=== PATIENT | female | born 1980 | race Caucasian/White ===

== ENCOUNTER 2017-10-19 15:57 | Emergency (ER) | payer OTHER ==
[2017-10-19] MEDS: ONDANSETRON 4MG/2ML VIAL (J2405) IV (17:46)
[2017-10-19] MEDS: MORPHINE 4 MG/ML 1ML VIAL (J2270) IV (17:47)
[2017-10-19] MEDS: NS 1,000 ML IV (17:47)
[2017-10-19 18:04] LABS: BASO # 0.1 10^3/uL (0.0-0.2); BASO % 0.6 % (0.0-1.0); EOS # 0.4 10^3/uL (0.0-0.50); EOS % 3.4 % (0.0-3.0); HEMATOCRIT 41.3 % (36.0-47.0); HEMOGLOBIN 13.7 g/dl (12.0-16.0); IMMATURE GRANULOCYTE % 0.2 % (0-3.0); LYMPH # 3.6 10^3/uL (1.5-4.5); LYMPH % 34.9 % (24.0-44.0); MEAN CORPUSCULAR HEMOGLOBIN 28.5 pg (27.0-33.0); MEAN CORPUSCULAR HGB CONC 33.2 g/dl (32.0-36.5); MONO # 0.6 10^3/uL (0.0-0.8); MONO % 5.7 % (0.0-5.0); NEUTROPHILS # 5.7 10^3/uL (1.8-7.7); NEUTROPHILS % 55.2 % (36.0-66.0); PLATELET COUNT, AUTOMATED 334 10^3/uL (150-450); RED CELL DISTRIBUTION WIDTH 12.8 % (11.5-14.5); WHITE BLOOD COUNT 10.3 10^3/uL (4.0-10.0)
[2017-10-19 18:06] LABS: KETONE, URINE AUTO RFX NEGATIVE (NEGATIVE); NITRITE, URINE AUTO RFX NEGATIVE (NEGATIVE); RBC, URINE AUTO RFX 3 /HPF (0-3); SPECIFIC GRAVITY UR AUTO RFX 1.004 (1.002-1.035); SQUAM EPITHELIAL CELL UR AURFX 3 /HPF (0-6); WBC, URINE AUTO RFX 6 /HPF (0-3)
[2017-10-19 18:07] LABS: LEUKOCYTE ESTERASE UR AUTO RFX 2+ (NEGATIVE)
[2017-10-19 18:23] LABS: ALBUMIN 4.2 GM/DL (3.2-5.2); ALBUMIN/GLOBULIN RATIO 1.14 (1.00-1.93); ALKALINE PHOSPHATASE 80 U/L (45-117); ALT/SGPT 38 U/L (12-78); ANION GAP 7 MEQ/L (8-16); AST/SGOT 16 U/L (7-37); BILIRUBIN,DIRECT 0.1 MG/DL (0.0-0.2); BILIRUBIN,TOTAL 0.3 MG/DL (0.2-1.0); BLOOD UREA NITROGEN 9 MG/DL (7-18); CALCIUM LEVEL 9.1 MG/DL (8.5-10.1); CARBON DIOXIDE LEVEL 26 MEQ/L (21-32); CHLORIDE LEVEL 106 MEQ/L (98-107); GLOMERULAR FILTRATION RATE > 60.0 (>60); GLUCOSE, FASTING 85 MG/DL (70-100); LIPASE 115 U/L (73-393); POTASSIUM SERUM 3.6 MEQ/L (3.5-5.1); SODIUM LEVEL 139 MEQ/L (136-145); TOTAL PROTEIN 7.9 GM/DL (6.4-8.2)
[2017-10-19] MEDS ORDERED: ISOVUE-370 76% 100ML VIAL (Q9967) As Ordered (18:42)
[2017-10-19] MEDS: CIPROFLOXACIN 500 MG TAB PO (20:36)
== END 2017-10-19 20:39 | disposition home or self-care (01) ==
LOC: M ED 15:57
DX: K52.9 Noninfective gastroenteritis and colitis, unspecified (principal); N30.01 Acute cystitis with hematuria; K76.0 Fatty (change of) liver, not elsewhere classified; Z88.2 Allergy status to sulfonamides
CPT/HCPCS: J2270

== ENCOUNTER 2019-07-01 16:25 | Emergency (ER) | payer OTHER, SELFPAY ==
[~2019-07-01] VITALS: Ht 167.6 cm; Wt 101.1 kg
[~2019-07-01 16:25] MED LIST: CIPR-249 PO
[2019-07-01 19:28] LABS: BASO # 0.1 10^3/uL (0.0-0.2); BASO % 0.7 % (0.0-1.0); EOS # 0.3 10^3/uL (0.0-0.5); EOS % 3.1 % (0.0-3.0); HEMATOCRIT 45.3 % (36.0-47.0); HEMOGLOBIN 14.4 g/dl (12.0-15.5); LYMPH % 34.3 % (24.0-44.0); MEAN CORPUSCULAR HEMOGLOBIN 28.4 pg (27.0-33.0); MEAN CORPUSCULAR HGB CONC 31.8 g/dl (32.0-36.5); MEAN CORPUSCULAR VOLUME 89.3 fl (80.0-96.0); MONO # 0.4 10^3/uL (0.0-0.8); MONO % 4.9 % (0.0-5.0); NEUTROPHILS # 4.9 10^3/uL (1.5-8.5); NEUTROPHILS % 56.8 % (36.0-66.0); PLATELET COUNT, AUTOMATED 347 10^3/uL (150-450); RED BLOOD COUNT 5.07 10^6/uL (4.00-5.40); WHITE BLOOD COUNT 8.6 10^3/uL (4.0-10.0)
[2019-07-01 19:50] LABS: ALBUMIN 4.1 GM/DL (3.2-5.2); ALT/SGPT 46 U/L (12-78); BILIRUBIN,DIRECT < 0.1 MG/DL (0.0-0.2); BILIRUBIN,TOTAL 0.3 MG/DL (0.2-1.0); BLOOD UREA NITROGEN 11 MG/DL (7-18); CALCIUM LEVEL 9.5 MG/DL (8.5-10.1); CARBON DIOXIDE LEVEL 26 MEQ/L (21-32); CHLORIDE LEVEL 108 MEQ/L (98-107); GLOMERULAR FILTRATION RATE > 60.0 (>60); GLUCOSE, FASTING 91 MG/DL (70-100); LIPASE 89 U/L (73-393); SODIUM LEVEL 141 MEQ/L (136-145); TOTAL PROTEIN 8.3 GM/DL (6.4-8.2)
[2019-07-01] MEDS ORDERED: KETOROLAC 30 MG/ML VIAL (J1885) IV ONE (20:00)
[2019-07-01] MEDS ORDERED: ISOVUE-370 76% 100ML VIAL (Q9967) As Ordered ONE (20:14)
--- NOTE | 2019-07-01 21:40 | REPVR ---
PROCEDURE INFORMATION: Exam: CT Abdomen And Pelvis With Contrast Exam date and time: 07/01/2019 8:16 PM Clinical history: 38 years old, female; Abdominal pain; Generalized; Additional info: Right sided abd pain TECHNIQUE: Imaging protocol: Computed tomography of the abdomen and pelvis with intravenous contrast. Radiation optimization: All CT scans at this facility use at least one of these dose optimization techniques: automated exposure control; mA and/or kV adjustment per patient size (includes targeted exams where dose is matched to clinical indication); or iterative reconstruction. Contrast material: ISOVUE 370; Contrast volume: 100 ml; Contrast route: IV; COMPARISON: CT ABD/PEL W/IV CONTRAST ONLY 10/19/2017 6:45 PM FINDINGS: Lungs: No suspicious mass or airspace process in the visualized lung bases. Liver: Liver appears normal with no focal abnormality. Gallbladder and bile ducts: Gallbladder is surgically absent. Pancreas: Pancreas appears normal. No focal mass or peripancreatic inflammation. Spleen: Spleen appears homogeneous without focal mass. Adrenals: Adrenal glands are normal in appearance. Kidneys and ureters: Kidneys appear normal, with no stone, solid mass or hydronephrosis. Stomach and bowel: No evidence of small bowel obstruction. No evidence of acute diverticulitis. Terminal ileum has normal appearance. Appendix: Normal caliber appendix is identified, with no adjacent inflammation. Intraperitoneal space: No pneumoperitoneum. Vasculature: Main portal and splenic veins enhance normally. No aortic aneurysm. Lymph nodes: No enlarged lymph nodes. Bladder: Urinary bladder appears normal. Reproductive: Uterus and ovaries are normal in size. Bones/joints: Bony structures show no acute fracture or destructive process. Soft tissues: Unremarkable. IMPRESSION: No explanation for acute right-sided abdominal pain. Essentially unremarkable abdomen pelvis CT in a patient who has undergone a prior cholecystectomy Electronically signed by: Ector Coffey On 07/01/2019 21:39:47 PM
[2019-07-01 22:11] VITALS: BP 161/79
[2019-07-01] MEDS ORDERED: CYCL5TAB PO (22:30)
[2019-07-01] MEDS ORDERED: KETO10TAB PO (22:30)
== END 2019-07-01 22:44 | disposition home or self-care (01) ==
LOC: M ED 16:25
DX: R10.9 Unspecified abdominal pain (principal); Z88.2 Allergy status to sulfonamides
CPT/HCPCS: 36415; 74177; 80048; 80076; 81001; 83690; 84702; 85025; 96374; 99284; J1885; Q9967